=== PATIENT | male | born 1965 ===

== ENCOUNTER 2022-08-12 12:00 | Inpatient (IN) | payer OTHER ==
[~2022-08-12] VITALS: Ht 180.3 cm; Wt 107.0 kg
[2022-08-12] MEDS ORDERED: AVAPRO150 MG PO (15:36)
[2022-08-12] MEDS ORDERED: NORVASC5 MG PO (15:37)
[2022-08-12] MEDS ORDERED: XALATAN (15:37)
[2022-08-12] MEDS ORDERED: DORZOLAMIDE HCL10 ML OP (15:38)
[2022-08-12] MEDS ORDERED: CIALIS5 MG PO (15:38)
[2022-08-14] MEDS ORDERED: DICLOFENAC SODI75 MG (13:03)
[2022-08-14] MEDS ORDERED: FOLIC ACID1 MG (13:03)
[2022-08-14] MEDS ORDERED: INTEGRA PLUS C1 EACH (13:03)
[2022-08-14] MEDS ORDERED: LATANOPROST2.5 ML (13:04)
[2022-08-16] MEDS ORDERED: PERCOCET 5-3251 EACH PO (15:15)
== END 2022-08-16 16:34 | disposition home or self-care (01) | DRG 331 ==
LOC: O/R 08-14 11:31 → SURG 08-14 12:00 → SURH 08-15 14:53
PROVIDERS: ADMIT Surgery; ATTEND Surgery
PROC: 07BB4ZZ Excision of Mesenteric Lymphatic, Percutaneous Endoscopic Approach (ICD-10-PCS; 2022-08-14)
PROC: 0DTF4ZZ Resection of Right Large Intestine, Percutaneous Endoscopic Approach (ICD-10-PCS; principal; 2022-08-14 23:45)
DX: C18.2 Malignant neoplasm of ascending colon (principal); R19.4 Change in bowel habit; I10 Essential (primary) hypertension; Z80.0 Family history of malignant neoplasm of digestive organs